=== PATIENT | female | born 1950 | race Caucasian/White ===

== ENCOUNTER 2024-03-07 10:26 | Observation (INO) ==
[~2024-03-07 10:26] MED LIST: NS 0.45% 1000 ml BAG 1,000 ML IV SCH; Naloxone 0.4 mg VIAL 0.4 mg/ml 1 ml VIAL IV PRN; Ondansetron 4 mg VIAL 2 MG/ML 2 ml VIAL IV PRN; Propofol 10 mg/ml 100 ML BTL 1,000 MG/100 ML BTL ONE
[2024-03-07] MEDS: Buffered Lidocaine 1% SYRIN 1 ml INTRADERM ONE (10:51)
[2024-03-07] MEDS ORDERED: fentaNYL 100 mcg/2 ml 50 MCG/ML VIAL ONE ×5 (10:54→17:34)
[2024-03-07] MEDS ORDERED: Lidocaine 2% PF 5 ML VIAL ONE (10:54)
[2024-03-07] MEDS ORDERED: Dexamethasone IV 4 MG/ML VIAL 1 ml VIAL ONE ×2 (10:54→12:43)
[2024-03-07] MEDS ORDERED: Midazolam 2 mg/2 ml VIAL 1 mg/ml 2 ml VIAL (2 mg) ONE ×3 (10:54→17:40)
[2024-03-07] MEDS ORDERED: Ondansetron 4 mg VIAL 2 MG/ML 2 ml VIAL ONE (10:54)
[2024-03-07] MEDS ORDERED: ceFAZolin 2 GM PREMIX 2 GM/50 ML BAG ONE (11:13)
[2024-03-07] MEDS ORDERED: Tranexamic Acid 1 GM/100ML BAG 2,000 MG/200 ML BAG IV ONE (11:13)
[2024-03-07 11:18] LABS: Rapid COVID-19 Molecular Undetected (Undetected)
[2024-03-07] MEDS: Lactated Ringers 1000 ml BAG 1,000 ML IV SCH ×2 (11:40→21:03)
[2024-03-07] MEDS ORDERED: ROPIVACAINE 5 MG/ML 30 ML BTL (0.5%) ONE ×2 (12:43→13:40)
[2024-03-07] MEDS ORDERED: HYDROmorphone 0.5 MG/0.5 ML SYRINGE ONE (12:44)
[2024-03-07] MEDS ORDERED: Rocuronium 50 mg VIAL 10 mg/ml 5 ml VIAL (50 mg) ONE (12:44)
[2024-03-07] MEDS ORDERED: Phenylephrine IV 10 MG/ML 1 ml VIAL ONE (14:29)
[2024-03-07] MEDS ORDERED: Morphine 2 MG/ML SYRINGE IV PRN (16:27)
[2024-03-07] MEDS ORDERED: Ondansetron ODT 4 mg TAB 4 MG TAB PO PRN (16:27)
[2024-03-07] MEDS ORDERED: Calcium Carb (TUMS) 500 mg CHEW TAB PO PRN (16:27)
[2024-03-07] MEDS ORDERED: Ondansetron 4 mg VIAL 2 MG/ML 2 ml VIAL IV PRN (16:27)
[2024-03-07] MEDS ORDERED: Magnesium Hydroxide LIQ 30 ML UDC PO PRN (16:27)
[2024-03-07] MEDS ORDERED: Lactulose 30 ml UDC PO PRN (16:27)
[2024-03-07] MEDS ORDERED: Naloxone Nasal Spray 4 MG/0.1 ML NASAL.SPR INTRANASAL PRN (16:30)
[2024-03-07] MEDS: fentaNYL 100 mcg/2 ml 50 MCG/ML VIAL IV PRN (17:05)
[2024-03-07] MEDS: Midazolam 10 mg/10 ml VIAL 1 mg/ml 10 ml VIAL (10 mg) IV SLOW PU PRN (17:45)
[2024-03-07] MEDS: Magnesium Hydroxide LIQ 30 ML UDC PO SCH (20:53)
[2024-03-07] MEDS: Acetaminophen IV 1 GM/100ML 1,000 MG/100 ML BAG IV ONE (23:01)
[2024-03-07] MEDS: ceFAZolin 2 GM PREMIX 2 GM/50 ML BAG IV SCH (23:19)
[2024-03-08 07:10] LABS: Calcium 8.3 mg/dL (8.6-10.3); Creatinine, Serum 0.74 mg/dL (0.51-0.95); Potassium 4.1 mmol/L (3.5-5.0); eGFR CKD-EPI 84.8 (>60)
[2024-03-08 07:29] LABS: Hemoglobin 9.1 g/dL (11.5-14.3); Mean Platelet Volume 8.2 fL (7.5-11.2); Platelet Count 238 10^3/uL (150-450)
[2024-03-08] MEDS ORDERED: MORPHINE SCH (09:00)
[2024-03-08] MEDS: Vitamin THERAPEUTIC TAB PO SCH (09:01)
[2024-03-08 09:24] VITALS: BP 101/57
== END 2024-03-08 15:30 | disposition home or self-care (01) ==
LOC: OR 10:26 → SSU 10:26
PROVIDERS: ADMIT Orthopaedic Surgery Adult Reconstructive Orthopaedic Surgery; ATTEND Orthopaedic Surgery Adult Reconstructive Orthopaedic Surgery